=== PATIENT | male | born 1955 | race Caucasian/White ===

== ENCOUNTER 2020-09-23 07:31 | Inpatient (IN) | payer OTHER, BC, SELFPAY ==
[~2020-09-23] VITALS: Ht 175.3 cm; Wt 76.7 kg
[2020-09-23 07:35] VITALS: BP_SYST 88
--- NOTE | 2020-09-23 07:35 | NUR ---
Patient to ER bed 4 to gown for evaluation. Side rails up. Report given to Laly HELTON.
--- NOTE | 2020-09-23 07:36 | NUR ---
Patient presented to ER C/O SOB. PT BIB ACLS from [facility], per EMS staff report PT had desaturation to 86% on RA, cough & congestion. EMS report while on seen pt became hypotensive. per EMS PT was given Moderna vaccine .
--- NOTE | 2020-09-23 07:49 | NUR ---
ER Dr. Murphy at bedside examining patient.
--- NOTE | 2020-09-23 08:10 | NUR ---
# 22 gauge angiocath placed to Left hand . Use of asceptic technique. Opsite placed over site. Blood return noted. Blood for lab drawn from site. Flushed with 10 cc of normal saline. No evidence of infiltration noted. Patient tolerated well.
[2020-09-23 09:04] LABS: BASOPHILS % (AUTO) 0.2 % (0.0-2.0); HEMATOCRIT 44.6 % (36-54); HEMOGLOBIN 15.2 g/dL (14.0-18.0); LYMPHOCYTES % (AUTO) 8.5 % (20.5-51.5); MEAN CORPUSCULAR HEMOGLOBIN 33 pg (27-31); MEAN CORPUSCULAR HGB CONC 34 % (32-36); MEAN CORPUSCULAR VOLUME 95 fL (79.0-98.0); MONOCYTES # (AUTO) 0.5 K/uL (0.0-1.0); MONOCYTES % (AUTO) 4.3 % (1.7-9.3); NEUTROPHILS # (AUTO) 9.9 K/uL (1.8-7.7); PLATELET COUNT (AUTO) 96 K/uL (130-430); RED BLOOD CELL COUNT(AUTO) 4.69 MIL/uL (4.2-6.2); RED CELL DISTRIBUTION WIDTH 13.1 % (9.0-15.0); WHITE BLOOD COUNT (AUTO) 11.3 K/uL (4.8-10.8)
[2020-09-23 09:22] LABS: INR 1.1 (0.80-1.20); PROTHROMBIN TIME 10.8 SECS (9.5-12.5)
[2020-09-23 09:30] LABS: CALCIUM 8.5 mg/dL (8.4-11.0); CREATININE 2.92 mg/dL (0.55-1.30); POTASSIUM 3.3 mmol/L (3.5-5.1)
[2020-09-23] MEDS ORDERED: NS 500 ML IV ONE (09:30)
--- NOTE | 2020-09-23 09:40 | NUR ---
Sister, Michelle Adame of PT called for update. Michelle gave me a brief summary of why pt was brought to ER, I confirmed PT was BIB EMS for destaturation and hypotension and pt is currently stable with Oxygen support and labs still pending. Michelle informed me PT was given COVID vaccine 09/21/20 and asked for pt to have a COVID test. I confirmed a COVID test was ordered and sent to lab but no results at this time. I educated sister of PT if she had spent time with PT and feels she may have been exposed to quarantine at home. The Michelle asked if I could call her with lab results. I informed Michelle I may not have time to call her with an update, and reassured her the PT would be cared for and recieve good emergency medicine treatment. Michelle became upset and began yelling. "Patients go to the ER and get left there to ". I will do my best to get you an update. Michelle stated I will call when ever want to get an update and continued to yell, I asked Art, Charge to assist with the family and transferred the phone call.
[2020-09-23 09:44] LABS: ALBUMIN 2.7 g/dL (3.4-4.8); TOTAL BILIRUBIN 0.5 mg/dL (0.0-1.0)
[2020-09-23 10:30] LABS: CKMB RELATIVE INDEX 0.2 (0.0-2.9); CREATINE KINASE MB 0.9 ng/mL (0-3.6)
[2020-09-23 10:59] LABS: C-REACTIVE PROTEIN QUANT 59.1 mg/dL (0-0.5)
[2020-09-23] MEDS ORDERED: HEPARIN 25,000 UNITS/D5W 250ML 250 ML IV ONE (11:00)
[2020-09-23] MEDS ORDERED: DEXAMETHASONE SOD PHOSPHATE 10 MG/ML VIAL IVP ONE (11:00)
[2020-09-23] MEDS ORDERED: cefTRIAXone 1 GM in D5W 50 ML IV ONE (11:00)
[2020-09-23] MEDS ORDERED: AZITHROMYCIN 500 MG in NS 250 ML IV ONE (11:00)
[2020-09-23] MEDS ORDERED: HEPARIN SODIUM,PORCINE 5,000 UNITS/ML VIAL IVP ONE (11:00)
[2020-09-23 11:30] LABS: BILIRUBIN,URINE NEGATIVE (NEGATIVE); BLOOD, URINE 3+ (NEGATIVE); CLARITY/URINE CLOUDY (CLEAR); COLOR,URINE YELLOW (YELLOW); GLUCOSE,URINE NEGATIVE (NEGATIVE); KETONES,URINE 1+ (NEGATIVE); LEUKOCYTE ESTERASE ,URINE 2+ (NEGATIVE); NITRITE, URINE NEGATIVE (NEGATIVE); PH,URINE 5.5 (5.0-8.0); PROTEIN URINE 2+ (NEGATIVE); UROBILINOGEN,URINE 0.2 (0.2-1.0)
[2020-09-23] MEDS ORDERED: cefTRIAXone 1 GM VIAL ONE (11:44)
[2020-09-23 11:45] LABS: BACTERIA,URINE MODERATE /HPF (None Seen); MUCUS,URINE 1+ /LPF (None Seen); RBC,URINE 50-80 /HPF (0-3); WBC,URINE 50-80 /HPF (0-3)
--- NOTE | 2020-09-23 11:50 | NUR ---
PT awake resting in [facility].
--- NOTE | 2020-09-23 12:10 | NUR ---
Admission orders from Dr. Montano. Notified distribution operation supervisor need for Tele bed admission.
[2020-09-23] MEDS ORDERED: AZITHROMYCIN 100 MG/5 ML SUSPENSION ONE (12:39)
[2020-09-23] MEDS ORDERED: AZITHROMYCIN 500 MG/VIAL (ZITHROMAX) IV ONE ×2 (12:40→17:45)
--- NOTE | 2020-09-23 13:21 | NUR ---
Note claremary in EDM - 09/23/20 at [address] Chand for Tia (Daughter of PT). Dr Chand made aware Tia would like pt to take home medication Rozlytrek 200mg. "Dr. Chand stated pt may take home medication". I informed Tia Chand stated pt may take medication.
--- NOTE | 2020-09-23 13:21 | NUR ---
Juan godinez in EDM - 09/23/20 at 1328 by SDEDTD Rich aguilar Tia )Daughter of PT)
[2020-09-23] MEDS ORDERED: ACETAMINOPHEN 325 MG TABLET GT PRN (13:45)
[2020-09-23] MEDS ORDERED: ALBUTEROL SULFATE 0.083% 2.5 MG/3 ML VIAL.NEB INH PRN (13:45)
[2020-09-23] MEDS ORDERED: LORazepam 2 MG/ML VIAL IVP PRN (13:45)
[2020-09-23] MEDS ORDERED: ONDANSETRON HCL 4 MG/2 ML VIAL IVP PRN (13:45)
[2020-09-23] MEDS ORDERED: HYDROcodone/ACETAMIN 5-325 MG TAB (NORCO/ VICODIN) GT PRN (13:45)
[2020-09-23] MEDS ORDERED: NALOXONE HCL 0.4 MG/ML AMP (NARCAN) IVP PRN ×2 (13:45)
[2020-09-23] MEDS ORDERED: HYDROcodone/ACETAMIN 10-325 MG TAB GT PRN (13:45)
[2020-09-23] MEDS: IPRATROPIUM BROM 0.5 MG/2.5 ML VIAL.NEB (ATROVENT) INH SCH ×3 (15:00→23:00)
[2020-09-23] MEDS ORDERED: COLL100 PO (16:27)
[2020-09-23] MEDS ORDERED: NOR10 GT (16:27)
[2020-09-23] MEDS ORDERED: SIMV10TA2 GT (16:27)
[2020-09-23] MEDS ORDERED: CRAN450T9 GT (16:27)
[2020-09-23] MEDS ORDERED: ACET325T53 GT (16:27)
[2020-09-23] MEDS ORDERED: METO-442 GT (16:27)
[2020-09-23] MEDS ORDERED: OMEP1PAC5 PO (16:27)
[2020-09-23] MEDS ORDERED: LISI40TA4 GT (16:27)
[2020-09-23] MEDS ORDERED: CEL20 GT (16:27)
[2020-09-23] MEDS ORDERED: POLY15DR31 EACH EYE (16:27)
[2020-09-23] MEDS ORDERED: ASCO500T20 GT (16:27)
[2020-09-23] MEDS ORDERED: PHEN100O4 GT (16:27)
[2020-09-23] MEDS ORDERED: CAT.1 GT (16:27)
[2020-09-23] MEDS ORDERED: HYDR10SY11 GT (16:27)
[2020-09-23] MEDS ORDERED: SSNOVOLOG SUBCUT (16:27)
--- NOTE | 2020-09-23 17:10 | NUR ---
PT micheal mckinnon.
--- NOTE | 2020-09-23 17:15 | NUR ---
# 20 gauge angiocath placed to right AC. Use of asceptic technique. Opsite placed over site. Blood return noted. Blood for lab drawn from site. Flushed with 10 cc of normal saline. No evidence of infiltration noted. Patient tolerated well.
[2020-09-23] MEDS: D5/0.45 NS 1,000 ML IV SCH ×2 (17:52→22:11)
[2020-09-23] MEDS: AZITHROMYCIN 500 MG in NS 250 ML IV SCH (17:53)
[2020-09-23] MEDS: cefTRIAXone 1 GM IVPB PREMIX 50 ML IV SCH (17:56)
--- NOTE | 2020-09-23 18:32 | NUR ---
Made Dr. Montano aware of BP 78/48
[2020-09-23] MEDS ORDERED: NACL 0.9% 1,000 ML IV ONE ×2 (18:45→19:45)
--- NOTE | 2020-09-23 18:46 | NUR ---
D5.45NS to 150ml/hr per Dr. Montano
[2020-09-23] MEDS ORDERED: INSULIN REGULAR, HUMAN 10 UNITS/0.1 ML INJ ONE (19:08)
[2020-09-23] MEDS: INSULIN REGULAR, HUMAN 100 UNITS/ML, 10 ML VIAL (humuLIN R) SUBCUT PRN (19:10)
--- NOTE | 2020-09-23 19:23 | NUR ---
report to January RN
--- NOTE | 2020-09-23 19:40 | NUR ---
Call Dr. Montano regarding, BP 76/48 after given NSS Bolus- Order upgrate to ICU and started drip Levophed (see order).
[2020-09-23] MEDS ORDERED: NOREPINEPHRINE 4 MG/4 ML VIAL IV ONE (19:43)
--- NOTE | 2020-09-23 19:57 | NUR ---
BP 97/41 after started NSS Bolus-Hold Levophed.
--- NOTE | 2020-09-23 20:08 | NUR ---
BP 76/41- start Levophed drip 0.1 mcg/kg/hr- 28-87 ml/hr.
--- NOTE | 2020-09-23 20:38 | NUR ---
Ultrasound at bedside.
--- NOTE | 2020-09-23 21:40 | NUR ---
Juan godinez in ED - 09/24/20 at 0317 by [email or web address] Sister updated on patient status. all questions answered. will be updated with any change of condition.
--- NOTE | 2020-09-23 21:40 | NUR ---
Sister, NELSON STARKS, updated on patient status. All questions answered. INFORMED PATIENT HAS BEEN UPGRADED TO ICU. will be updated with any change of condition.
--- NOTE | 2020-09-23 22:00 | NUR ---
BP 88/56- Increase Levophed drip
--- NOTE | 2020-09-23 23:16 | NUR ---
Continue Levophed drip -0.19 mcg/kg/hr- BP 106/74
--- NOTE | 2020-09-23 23:35 | NUR ---
149/65- Decrease Levophed drip
--- NOTE | 2020-09-23 23:42 | NUR ---
SISTER, CHRISTI GARY, CALLED FOR UPDATE ON PATIENT STATUS. SISTER UPDATED. INFORMED PATIENT IS IN ED FOR ICU HOLD.
[2020-09-24] MEDS ORDERED: INSULIN REGULAR, HUMAN 10 UNITS/0.1 ML INJ ONE (00:01)
--- NOTE | 2020-09-24 00:08 | NUR ---
BS 226- Given Insulin R 4 unit as sliding scale order.
--- NOTE | 2020-09-24 00:16 | NUR ---
Continue Levophed drip - 0.13 mcg/kg/hr. BP 122/100
--- NOTE | 2020-09-24 00:44 | NUR ---
Patient had bowel movement, clean patient and change a new gown.
--- NOTE | 2020-09-24 00:52 | NUR ---
Move patient to hospital bed, patient is stable after move to a new bed.
--- NOTE | 2020-09-24 01:36 | NUR ---
Patient is sleeping, BP 116/72.
[2020-09-24] MEDS ORDERED: NOREPINEPHRINE 4 MG/4 ML VIAL IV ONE (01:41)
--- NOTE | 2020-09-24 01:57 | NUR ---
Decrease to Levophed 0.1 mcg/kg/hr. BP 108/48
[2020-09-24] MEDS: IPRATROPIUM BROM 0.5 MG/2.5 ML VIAL.NEB (ATROVENT) INH SCH ×2 (02:51→07:00)
--- NOTE | 2020-09-24 03:24 | NUR ---
Continue Levophed -0.1 mcg/kg/hr. BP 104/79. Patient sleeping, no respiratory distress,
--- NOTE | 2020-09-24 04:36 | NUR ---
Patient pulled IV left hand, # 22 gauge angiocath placed to left wrist by DANIE Shields. Use of asceptic technique. Opsite placed over site. Blood return noted. Blood for lab drawn from site. Flushed with 10 cc of normal saline. No evidence of infiltration noted. Patient tolerated well.
--- NOTE | 2020-09-24 05:02 | NUR ---
Patient had bowel movement and urinated, changed new bed sheet and cleaned patient.
[2020-09-24] MEDS: D5/0.45 NS 1,000 ML IV SCH ×3 (05:08→18:05)
--- NOTE | 2020-09-24 05:18 | NUR ---
Continue drip Levophed 0.1 mcg/kg/hr, BP 112/61.
--- NOTE | 2020-09-24 05:47 | NUR ---
Patient had bowel movement, cleaned, changed bed sheet and gown.
--- NOTE | 2020-09-24 06:09 | NUR ---
BS 120- No insulin
[2020-09-24 06:10] VITALS: BP_SYST 110
--- NOTE | 2020-09-24 07:06 | NUR ---
Report given to DANIE Ruffin to continue care.
--- NOTE | 2020-09-24 09:00 | NUR ---
No Labs resulted at this time
--- NOTE | 2020-09-24 09:38 | NUR ---
Levophed IV infusion titrated
[2020-09-24] MEDS ORDERED: NACL 0.9% 1,000 ML IV ONE (09:59)
[2020-09-24] MEDS ORDERED: HEPARIN SODIUM,PORCINE 5,000 UNITS/ML VIAL SUBCUT ONE (10:00)
--- NOTE | 2020-09-24 10:10 | NUR ---
PT repositioned in [facility] m[facility]inn[facility].
--- NOTE | 2020-09-24 10:15 | NUR ---
Lab results pending
[2020-09-24] MEDS: NOREPINEPHRINE BITARTRATE 4 MG in NS 246 ML IV PRN (10:43)
[2020-09-24] MEDS: POTASSIUM CHLORIDE 10 MEQ in NACL 0.9% 1,000 ML IV SCH ×2 (10:47→19:03)
[2020-09-24] MEDS: ALBUTEROL MDI INHALATION 8 GM INH INH SCH ×4 (11:00→23:00)
[2020-09-24] MEDS: NACL 0.9% 1,000 ML IV SCH ×2 (11:09→13:56)
--- NOTE | 2020-09-24 11:20 | NUR ---
Notified Ro in Lab, AM labs not populating in [facility]. Ro stated am labs have not been drawn. I made Ro aware Labs need to be drawn STAT
--- NOTE | 2020-09-24 11:25 | NUR ---
Dr. Kaminski called ER for consult.
--- NOTE | 2020-09-24 11:30 | NUR ---
I attempted to draw labs, unsuccessful.
--- NOTE | 2020-09-24 11:50 | NUR ---
Ro at for lab draw.
[2020-09-24] MEDS: DEXAMETHASONE SOD PHOSPHATE 10 MG/ML VIAL IVP SCH (12:15)
[2020-09-24 12:21] LABS: BASOPHILS % (AUTO) 0.3 % (0.0-2.0); EOSINOPHILS % (AUTO) 0.1 % (0.0-4.0); HEMATOCRIT 36.8 % (36-54); HEMOGLOBIN 12.6 g/dL (14.0-18.0); LYMPHOCYTES # (AUTO) 0.6 K/uL (1.0-5.5); LYMPHOCYTES % (AUTO) 5.7 % (20.5-51.5); MEAN CORPUSCULAR HEMOGLOBIN 33 pg (27-31); MEAN CORPUSCULAR HGB CONC 34 % (32-36); MEAN CORPUSCULAR VOLUME 96 fL (79.0-98.0); MONOCYTES # (AUTO) 0.3 K/uL (0.0-1.0); MONOCYTES % (AUTO) 2.8 % (1.7-9.3); NEUTROPHILS # (AUTO) 9.3 K/uL (1.8-7.7); NEUTROPHILS % (AUTO) 91.1 % (40.0-70.0); PLATELET COUNT (AUTO) 84 K/uL (130-430); RED BLOOD CELL COUNT(AUTO) 3.83 MIL/uL (4.2-6.2); RED CELL DISTRIBUTION WIDTH 13.4 % (9.0-15.0); WHITE BLOOD COUNT (AUTO) 10.2 K/uL (4.8-10.8)
[2020-09-24 12:35] LABS: CREATININE 2.32 mg/dL (0.55-1.30); PHOSPHORUS 1.5 mg/dL (2.7-4.5); POTASSIUM 3.2 mmol/L (3.5-5.1)
[2020-09-24] MEDS ORDERED: HEPARIN SODIUM,PORCINE 5,000 UNITS/ML VIAL ONE (13:50)
[2020-09-24] MEDS ORDERED: K PHOS 30 MM in NS 250 ML IV ONE (15:00)
--- NOTE | 2020-09-24 15:40 | NUR ---
PT repositioned, complete linen change.
[2020-09-24] MEDS: HEPARIN SODIUM,PORCINE 5,000 UNITS/ML VIAL SUBCUT SCH (17:08)
[2020-09-24] MEDS: cefTRIAXone 1 GM IVPB PREMIX 50 ML IV SCH (17:11)
--- NOTE | 2020-09-24 17:35 | NUR ---
DR VELASCO AT
--- NOTE | 2020-09-24 17:36 | NUR ---
CLARIFIED IVF ORDERS WITH DR. VELASCO IN ER NURSES STATION
--- NOTE | 2020-09-24 17:40 | NUR ---
supervisor painting department notified of IVF medications need d/t pharmacy closed.
[2020-09-24] MEDS ORDERED: NA PHOS 30 MM in NS 250 ML IV ONE (17:45)
[2020-09-24] MEDS: AZITHROMYCIN 500 MG in NS 250 ML IV SCH (18:04)
[2020-09-24] MEDS ORDERED: SODIUM PHOSPHATE IV ONE (18:05)
[2020-09-24] MEDS ORDERED: NACL 0.9% IV ONE (18:05)
--- NOTE | 2020-09-24 18:05 | NUR ---
Complete linen change & PT repositioned.
--- NOTE | 2020-09-24 19:14 | NUR ---
Report to Iza HELTON
--- NOTE | 2020-09-24 19:15 | NUR ---
ENDORSED BG 300 TAKEN AT 1844 BY ADAM HELTON. WILL GIVE 6 UNITS OF REGULAR INSULIN.
--- NOTE | 2020-09-24 19:20 | NUR ---
Introduced myself to patient, pt nonverbal. Pt has R arm contraction. Skin intact.
--- NOTE | 2020-09-24 19:30 | NUR ---
L IV infiltrated, IV line d/c
--- NOTE | 2020-09-24 19:40 | NUR ---
Pt soiled self, cleaned and gowned by Sonja ALFREDO.
[2020-09-24] MEDS: INSULIN REGULAR, HUMAN 100 UNITS/ML, 10 ML VIAL (humuLIN R) SUBCUT PRN (19:54)
--- NOTE | 2020-09-24 20:40 | NUR ---
# 16 FR Camacho catheter with use of sterile technique. Immediate return of 300 cc CLEAR YELLOW urine noted. Bedside drainage bag placed below level of bladder. Urine sample collected and sent to lab. Pt tolerated procedure WELL.
--- NOTE | 2020-09-24 21:34 | NUR ---
SISTER, CHRISTI, CALLED REQUESTING DR. VELASCO TO PUT ORDER FOR CONVALESCENT PLASMA. INFORMED DANIE PHILLIPS AND WILL NOTIFY DR. VELASCO FOR ORDERS.
--- NOTE | 2020-09-25 00:21 | NUR ---
ACCUCHECK 146 - PER INSULIN PROTOCOL NO INSULIN COVERAGE
[2020-09-25] MEDS ORDERED: HEPARIN SODIUM,PORCINE 5,000 UNITS/ML VIAL ONE (00:58)
--- NOTE | 2020-09-25 01:10 | NUR ---
RT called to bedside, Pt O2 SAT at 83%. O2 maxed currently at 88%
--- NOTE | 2020-09-25 01:24 | NUR ---
MRSA swab sent to LAB
[2020-09-25] MEDS: HEPARIN SODIUM,PORCINE 5,000 UNITS/ML VIAL SUBCUT SCH ×4 (01:27→22:51)
[2020-09-25] MEDS: D5/0.45 NS 1,000 ML IV SCH ×3 (01:27→14:05)
[2020-09-25] MEDS: ALBUTEROL MDI INHALATION 8 GM INH INH SCH ×6 (03:00→23:59)
--- NOTE | 2020-09-25 04:40 | NUR ---
lab at bedside drawing morning labs.
[2020-09-25] MEDS: POTASSIUM CHLORIDE 10 MEQ in NACL 0.9% 1,000 ML IV SCH ×2 (05:13→06:26)
[2020-09-25 05:26] LABS: BASOPHILS % (AUTO) 0.2 % (0.0-2.0); HEMATOCRIT 32.3 % (36-54); HEMOGLOBIN 11.4 g/dL (14.0-18.0); LYMPHOCYTES # (AUTO) 0.4 K/uL (1.0-5.5); LYMPHOCYTES % (AUTO) 4.6 % (20.5-51.5); MEAN CORPUSCULAR HEMOGLOBIN 33 pg (27-31); MEAN CORPUSCULAR HGB CONC 35 % (32-36); MEAN CORPUSCULAR VOLUME 95 fL (79.0-98.0); MONOCYTES # (AUTO) 0.4 K/uL (0.0-1.0); MONOCYTES % (AUTO) 4.7 % (1.7-9.3); NEUTROPHILS # (AUTO) 7.5 K/uL (1.8-7.7); NEUTROPHILS % (AUTO) 90.5 % (40.0-70.0); PLATELET COUNT (AUTO) 68 K/uL (130-430); RED BLOOD CELL COUNT(AUTO) 3.42 MIL/uL (4.2-6.2); RED CELL DISTRIBUTION WIDTH 13.1 % (9.0-15.0); WHITE BLOOD COUNT (AUTO) 8.3 K/uL (4.8-10.8)
[2020-09-25 05:48] LABS: CREATININE 1.67 mg/dL (0.55-1.30)
[2020-09-25 05:50] LABS: POTASSIUM 2.7 mmol/L (3.5-5.1)
--- NOTE | 2020-09-25 05:54 | NUR ---
critcal lab reporting - potassium 2.7, troponin 0.411. Dr. Montano paged.
--- NOTE | 2020-09-25 05:55 | NUR ---
Critical Value of Calcium 6
--- NOTE | 2020-09-25 06:00 | NUR ---
Dr Montano paged for critical values. New orders placed. Adolph corbett aware of order for patient. Mera corbett will bring K20 MEQ inn NS 1L
[2020-09-25 06:06] LABS: C-REACTIVE PROTEIN QUANT 45.1 mg/dL (0-0.5)
[2020-09-25] MEDS ORDERED: KCL 20 mEq in NS 1000 mL 1,000 ML IV ONE (06:11)
[2020-09-25] MEDS ORDERED: NOREPINEPHRINE 4 MG/4 ML VIAL IV ONE (06:20)
[2020-09-25 06:28] LABS: ERYTHROCYTE SEDIMENTATION RATE 67 MM/HR (0-15)
--- NOTE | 2020-09-25 06:41 | NUR ---
BG 251. Insulin humalin R protocol 6 units to be given
[2020-09-25] MEDS: KCL 20 mEq in NS 1000 mL 1,000 ML IV SCH ×2 (06:55→17:20)
[2020-09-25] MEDS: INSULIN REGULAR, HUMAN 100 UNITS/ML, 10 ML VIAL (humuLIN R) SUBCUT PRN ×3 (06:59→18:52)
--- NOTE | 2020-09-25 07:47 | NUR ---
REPORT GIVEN TO FEDERICO HELTON FOR CONTINUATION OF CARE
--- NOTE | 2020-09-25 08:17 | NUR ---
pt in bed resting, continues on Non rebreather mask. IV Levophed on hold per Provider order.
[2020-09-25] MEDS: DEXAMETHASONE SOD PHOSPHATE 10 MG/ML VIAL IVP SCH (09:00)
--- NOTE | 2020-09-25 09:03 | NUR ---
Pt in bed, resting well. Cont IVF and medications as ordered. Side rails up.
--- NOTE | 2020-09-25 09:50 | NUR ---
pt is resting, responds to tactile stimuli. IV Levophed stopped. Pt Vital signs have remained stable.
--- NOTE | 2020-09-25 11:29 | NUR ---
pt moving in bed, repositioned. Side rails up. Non verbal. Movement with tactile stimuli. IVF continued. Respiratory therapist at bedside.
--- NOTE | 2020-09-25 12:48 | NUR ---
Pt awake and responds to tactile stimuli. Camacho catheter draining. IVF continued.
--- NOTE | 2020-09-25 13:09 | NUR ---
Dietary called and asked that a Swollowing evaluation be ordered for pt. Order completed and Speech therapist notified.
--- NOTE | 2020-09-25 13:10 | NUR ---
ARLEN HALEY. LEFT A VOICE MESSAGE FOR CARLOS. DIALED [phone]
--- NOTE | 2020-09-25 13:12 | NUR ---
Dietitian Recommendations * Recommend ST swallow eval * Recommend D/C cardiac diet * Recommend continuing NPO order until ST swallow eval is completed LP, RD Please refer to Nutrition Assessment for details. Addendum: 09/25/20 at [address] Amended: Links added.
--- NOTE | 2020-09-25 13:15 | NUR ---
Family called and are asking for Plasma to be given to the patient. Requested that I call the Primary Provider Dr. Montano and request this medication.
--- NOTE | 2020-09-25 14:44 | NUR ---
Pt turned and repositioned. Pt johnson catheter in place. IVF infusing.
--- NOTE | 2020-09-25 15:36 | NUR ---
family called 3x to request Convalescent plasma. Dr. Baumann has been called.
[2020-09-25] MEDS: cefTRIAXone 1 GM IVPB PREMIX 50 ML IV SCH (17:20)
[2020-09-25] MEDS: AZITHROMYCIN 500 MG in NS 250 ML IV SCH (17:21)
--- NOTE | 2020-09-25 17:43 | NUR ---
Pt responding to tactile stimuli. Pt family notified that Ordered the Conv. plasma that they requested. After I explained that it has possible side effects, the family decided to hold off and asked not to give their brother the Plasma.
[2020-09-25] MEDS ORDERED: INSULIN REGULAR, HUMAN 10 UNITS/0.1 ML INJ ONE (18:41)
--- NOTE | 2020-09-25 19:01 | NUR ---
Insulin 2 units given per sliding scale. Pt awakens to tactile stimuli.
--- NOTE | 2020-09-25 19:30 | NUR ---
Report received by Andrade HELTON for continuation of care.
--- NOTE | 2020-09-25 22:30 | NUR ---
Pt positioned to his R side. Pillow placed on the right side.
--- NOTE | 2020-09-25 22:40 | NUR ---
Urine output from johnson cath 2100cc.
--- NOTE | 2020-09-26 00:45 | NUR ---
Pt is tachycardic and HBP. Pt given ativan. Will continue to monitor.
--- NOTE | 2020-09-26 01:20 | NUR ---
Pt reassed. Pt feels warm, given tylenol PRN order for fever, Oral temp of 101.5
--- NOTE | 2020-09-26 01:35 | NUR ---
Pt repositioned to L side.
[2020-09-26] MEDS: KCL 20 mEq in NS 1000 mL 1,000 ML IV SCH ×2 (03:05→18:00)
--- NOTE | 2020-09-26 03:10 | NUR ---
Pt is hypotensive, pt placed on standby levophed.
--- NOTE | 2020-09-26 04:21 | NUR ---
Lab reports plasma will take 5-7 days. Pt's family stated to hold plasma.
[2020-09-26] MEDS: ALBUTEROL MDI INHALATION 8 GM INH INH SCH ×6 (04:30→23:10)
--- NOTE | 2020-09-26 04:45 | NUR ---
Pt repositioned to R side.
--- NOTE | 2020-09-26 05:20 | NUR ---
Xray at bedside.
[2020-09-26] MEDS: HEPARIN SODIUM,PORCINE 5,000 UNITS/ML VIAL SUBCUT SCH (06:47)
[2020-09-26] MEDS ORDERED: HEPARIN SODIUM,PORCINE 5,000 UNITS/ML VIAL ONE (06:50)
[2020-09-26] MEDS: INSULIN REGULAR, HUMAN 100 UNITS/ML, 10 ML VIAL (humuLIN R) SUBCUT PRN (07:04)
--- NOTE | 2020-09-26 07:18 | NUR ---
REPORT GIVEN TO TONY HELTON FOR CONTINUATION OF CARE
--- NOTE | 2020-09-26 07:20 | NUR ---
Assumed care of patient, report received from DANIE Couch. Pt currently resting in bed, no distress noted.
--- NOTE | 2020-09-26 07:45 | NUR ---
Called pharmacy to request medications.
[2020-09-26 08:14] LABS: BASOPHILS % (AUTO) 0.3 % (0.0-2.0); HEMATOCRIT 39.2 % (36-54); HEMOGLOBIN 13.5 g/dL (14.0-18.0); LYMPHOCYTES # (AUTO) 0.7 K/uL (1.0-5.5); LYMPHOCYTES % (AUTO) 7.6 % (20.5-51.5); MEAN CORPUSCULAR HEMOGLOBIN 33 pg (27-31); MEAN CORPUSCULAR HGB CONC 34 % (32-36); MEAN CORPUSCULAR VOLUME 95 fL (79.0-98.0); MONOCYTES # (AUTO) 0.3 K/uL (0.0-1.0); MONOCYTES % (AUTO) 3.3 % (1.7-9.3); NEUTROPHILS # (AUTO) 8.3 K/uL (1.8-7.7); NEUTROPHILS % (AUTO) 88.8 % (40.0-70.0); PLATELET COUNT (AUTO) 91 K/uL (130-430); RED BLOOD CELL COUNT(AUTO) 4.11 MIL/uL (4.2-6.2); RED CELL DISTRIBUTION WIDTH 13.3 % (9.0-15.0); WHITE BLOOD COUNT (AUTO) 9.4 K/uL (4.8-10.8)
--- NOTE | 2020-09-26 08:30 | NUR ---
Pt repositioned to right side, pillow placed behind coccyx, HOB elevated above 30 degrees, pt tolerated well.
--- NOTE | 2020-09-26 08:45 | NUR ---
BP at 0830 156/91, repeat BP at 148/90, Levophed d/c'd as per protocol.
[2020-09-26 08:53] LABS: ALBUMIN 1.9 g/dL (3.4-4.8); CREATININE 1.94 mg/dL (0.55-1.30); POTASSIUM 3.5 mmol/L (3.5-5.1); TOTAL BILIRUBIN 0.5 mg/dL (0.0-1.0)
[2020-09-26 09:03] LABS: CALCIUM 6.6 mg/dL (8.4-11.0)
--- NOTE | 2020-09-26 09:04 | NUR ---
RECEIVED ABNORMAL LABS, TONY HELTON AWARE, WILL PLACE CALL TO PMD.
--- NOTE | 2020-09-26 09:05 | NUR ---
Dr. Yobani Montano paged regarding abnormal labs. Instructed to call Pulmonary regarding O2 sat and cardiology regarding elevated troponin.
[2020-09-26] MEDS: DEXAMETHASONE SOD PHOSPHATE 10 MG/ML VIAL IVP SCH (09:11)
--- NOTE | 2020-09-26 09:31 | NUR ---
DR. Winsome VELASCO & DR. Serafin VELASCO WERE PAGED
--- NOTE | 2020-09-26 09:34 | NUR ---
DR. GALINDO WAS PAGED FOR NURSE TO DOCTOR.
--- NOTE | 2020-09-26 09:39 | NUR ---
TT Dr. Doherty who is covering for Mannie, pulmonology, reported dereasing O2 sat, 80-85% on 15L NRB. Per Dr. Doherty, no change in orders at this time.
--- NOTE | 2020-09-26 10:30 | NUR ---
Pt repositioned to left side, pillow placed behind coccyx, HOB elevated above 30 degrees, pt tolerated well.
--- NOTE | 2020-09-26 11:03 | NUR ---
Paged Dr. Leia Montano again, still no response from original page regarding elevated Troponin.
--- NOTE | 2020-09-26 11:17 | NUR ---
Spoke with Dr. Leia Montano, report of elevated troponin given and most recent EKG results. Orders given to repeat EKG at noon. Orders placed.
--- NOTE | 2020-09-26 12:45 | NUR ---
Pt repositioned to right side, pillow placed behind coccyx, HOB elevated above 30 degrees, pt tolerated well.
--- NOTE | 2020-09-26 12:47 | NUR ---
Report received from lab regarding patient MRSA +, Dr. Oscar dior.
[2020-09-26 13:14] LABS: C-REACTIVE PROTEIN QUANT 59.2 mg/dL (0-0.5)
[2020-09-26] MEDS ORDERED: CALCIUM GLUCONATE 1 GM in NS 100 ML IV ONE (13:15)
--- NOTE | 2020-09-26 14:27 | NUR ---
S.T. SWALLOW EVAL SWALLOW EVAL PERFORMED. PT PRESENTS W/ SEV PRE-ORAL, ORAL, AND PHARYNGEAL DYSPHAGIA CHARACTERIZED BY POOR INTEREST FOR P.O., POOR BOLUS POSTER, ABSENT BOLUS MANIPULATION, AND ABSENT SWALLOW. PT IS AT HIGH RISK FOR ASPIRATION, MALNUTRITION, AND DEHYDRATION. REC: NPO - ALTERNATIVE METHOD FOR FEEDING. NURSE TONY NOTIFIED.
--- NOTE | 2020-09-26 14:30 | NUR ---
Pt repositioned to left side, pillow placed behind coccyx, HOB elevated above 30 degrees, pt tolerated well.
--- NOTE | 2020-09-26 15:16 | NUR ---
IV infiltrated, unable to obtain IV access, TO from Dr. Yobani Montano for PICC placement. Notified Mera corrugator supervisor. Copy of order faxed.
--- NOTE | 2020-09-26 15:20 | NUR ---
Left message for sister Chantale Rodriguez regarding telephone consent for central line placement.
--- NOTE | 2020-09-26 15:26 | NUR ---
Copy of Order faxed to general warehouse worker. Stated PICC nurse will not be able to place PICC until tomorrow morning. Consent signed by 2 nurses and placed on chart.
--- NOTE | 2020-09-26 15:37 | NUR ---
DR. IRVIN WAS PAGED FOR NURSE.
--- NOTE | 2020-09-26 15:43 | NUR ---
Dr Doherty made aware patient has no PIV, unable to obtain PIV. Patient will need central line. DR. Doherty states she will come to place line today.
--- NOTE | 2020-09-26 16:40 | NUR ---
Pt repositioned to right side, pillow placed behind coccyx, HOB elevated above 30 degrees, pt tolerated well.
[2020-09-26 16:42] LABS: INR 1.1 (0.80-1.20); PROTHROMBIN TIME 11.6 SECS (9.5-12.5)
--- NOTE | 2020-09-26 16:55 | NUR ---
Consent for Central line insertion obtained from pt's sister Chantale Rodriguez. DANIE Rangel for second verbal confirmation.
--- NOTE | 2020-09-26 17:45 | NUR ---
Patient not known to be of DNR status. Patient medicated with 10mg of Etomidate and 20 mg of Succinylcholine for sedation prior to placement of ET tube. Respiratory therapy at bedside prior to placement. Size 7.5 ET tube placed by Dr. Doherty. Cuff inflated with 10 cc air. Auscultation of breath sounds over bilateral chest wall. ET tube secured by RT. O2 sats 95% pulse ox. PCXR ordered to check tube placement.
[2020-09-26] MEDS ORDERED: MORPHINE I.V. DRIP 100 ML IV PRN (18:00)
--- NOTE | 2020-09-26 18:00 | NUR ---
Attempted 3x [address] place NG tube, unsuccessful. Will endorse to pan washer hand
[2020-09-26] MEDS ORDERED: MIDAZOLAM HCL IN 0.9 % NACL/PF 50 ML IV ONE (18:09)
[2020-09-26] MEDS: MIDAZOLAM HCL IN 0.9 % NACL/PF 50 ML IV PRN (18:10)
--- NOTE | 2020-09-26 18:46 | NUR ---
Radiology at bedside for CXR
--- NOTE | 2020-09-26 19:09 | NUR ---
Daughter Chantale notified about pt's intubation.
--- NOTE | 2020-09-26 19:17 | NUR ---
Care of patient endorsed to DANIE Whitney. Pt currently resting in bed, no distress noted.
--- NOTE | 2020-09-26 19:58 | NUR ---
RT bedside for stat ABG post intubation on Fio2 100%
--- NOTE | 2020-09-26 21:00 | NUR ---
Remains intubated on same settings, continuing IV gtts has not been needing titration
[2020-09-26 21:12] VITALS: BP_SYST 93
[2020-09-26 21:13] VITALS: BP_SYST 91
--- NOTE | 2020-09-26 22:08 | NUR ---
OG Tube placement confirmation Portable X Ray done, well tolerated
[2020-09-26 23:14] VITALS: BP_SYST 88
[2020-09-27] VITALS (8 sets, daily range): BP systolic 79–108
[2020-09-27 00:13] LABS: ERYTHROCYTE SEDIMENTATION RATE 114 MM/HR (0-15)
--- NOTE | 2020-09-27 00:45 | NUR ---
Starting Levophed IV gtt per ICU order and protocol, starting at 2 mcg
--- NOTE | 2020-09-27 01:00 | NUR ---
Levophed gtt effective AEB SBP at 102 now
--- NOTE | 2020-09-27 02:16 | NUR ---
Keeping Levophed IV gtt at same 2 mcg rate, SBP holding above 90
--- NOTE | 2020-09-27 03:00 | NUR ---
Titrated Levophed gtt to 4 mcg, SBP from 80 to effective back above 90
[2020-09-27] MEDS: ALBUTEROL MDI INHALATION 8 GM INH INH SCH ×6 (04:01→23:51)
--- NOTE | 2020-09-27 04:08 | NUR ---
Continue on ICU IV gtts protocol, Vent settings remain unchanged
--- NOTE | 2020-09-27 07:45 | NUR ---
Pt Sedated in hospital bed & intubated. Latasha RT at bs. Patient repositioned.
[2020-09-27 08:14] LABS: HEMATOCRIT 34.1 % (36-54); HEMOGLOBIN 11.8 g/dL (14.0-18.0); MEAN CORPUSCULAR HEMOGLOBIN 33 pg (27-31); MEAN CORPUSCULAR HGB CONC 35 % (32-36); MEAN CORPUSCULAR VOLUME 95 fL (79.0-98.0); PLATELET COUNT (AUTO) 101 K/uL (130-430); RED BLOOD CELL COUNT(AUTO) 3.58 MIL/uL (4.2-6.2); RED CELL DISTRIBUTION WIDTH 13.5 % (9.0-15.0)
[2020-09-27 08:31] LABS: CREATININE 2.06 mg/dL (0.55-1.30); POTASSIUM 3.8 mmol/L (3.5-5.1)
[2020-09-27 08:40] LABS: CALCIUM 6.3 mg/dL (8.4-11.0)
--- NOTE | 2020-09-27 08:45 | NUR ---
Dr. Doherty at BS.
--- NOTE | 2020-09-27 08:55 | NUR ---
Dr. Padilla made aware of Critical values : Ca 6.3 & Trop1.821
[2020-09-27] MEDS ORDERED: CALCIUM CHLORIDE 1 GM in NS 100 ML IV ONE (09:00)
[2020-09-27] MEDS ORDERED: CALCIUM CHLORIDE 1 GM/10 ML DISP.SYRIN (14 mEq Ca++/SYR) ONE (09:15)
[2020-09-27] MEDS ORDERED: CALCIUM CHLORIDE 1 GM/10 ML DISP.SYRIN (14 mEq Ca++/SYR) IVP ONE ×2 (09:30→09:45)
--- NOTE | 2020-09-27 09:35 | NUR ---
Dr. Winsome Montano made aware of Trop. 1.821 & Ca 6.3
--- NOTE | 2020-09-27 09:40 | NUR ---
Latasha RT at
--- NOTE | 2020-09-27 09:45 | NUR ---
Dr. Serafin Montano made aware of Trop. 1.088
--- NOTE | 2020-09-27 10:05 | NUR ---
PT sedated, given cares & repositioned.
[2020-09-27 10:55] LABS: C-REACTIVE PROTEIN QUANT 49.6 mg/dL (0-0.5)
[2020-09-27] MEDS ORDERED: HEPARIN SODIUM,PORCINE 5,000 UNITS/ML VIAL IVP ONE (11:45)
[2020-09-27] MEDS ORDERED: HEPARIN 25,000 UNITS/D5W 250ML 250 ML IV PRN (11:45)
[2020-09-27] MEDS ORDERED: DEXAMETHASONE SOD PHOSPHATE 10 MG/ML VIAL ONE (11:45)
[2020-09-27] MEDS ORDERED: HEPARIN SODIUM,PORCINE 2000 UNITS/0.4 ML BOLUS IVP PRN (11:45)
[2020-09-27] MEDS ORDERED: HEPARIN SODIUM,PORCINE 3000 UNITS/0.6 ML BOLUS IVP PRN (11:45)
[2020-09-27] MEDS: KCL 20 mEq in NS 1000 mL 1,000 ML IV SCH (12:04)
[2020-09-27] MEDS: DEXAMETHASONE SOD PHOSPHATE 10 MG/ML VIAL IVP SCH (12:05)
[2020-09-27] MEDS ORDERED: VANCOMYCIN HCL 1 GM/NS PREMIX 250 ML IV ONE (12:15)
--- NOTE | 2020-09-27 12:33 | NUR ---
Nutrition F/U RD reviewed pt's current EMR record including diet hx, MD notes, RN notes, pertinent labs/meds/procedures, care trends, and care activity Admitting Diagnosis Respiratory failure/COVID pneumonia/elevated troponin Reviewed Pertinent Medical/Surgical Hx Medical Record Other Medical History Comment: PMH: CVA, DM, GERD, HTN, seizure disorder, dysphagia per physician notes Pt also found w/ sepsis, SCARLET on CKD per physician notes SARS-CoV-2 Ag (Rapid) Positive 09/23 Subjective Information Per EMR, pt intubated, sedated, on vent, w/ OGT placed on 09/26. On Versed drips and IV D5NS d/hilary per NOV. Remains in ER and RD visit deferred at this time d/t isolation precautions. Noted pt now NPO x 4 days and is at risk of being malnourished. Pt may benefit from initiation of nutrition support. Recommend Vital High Protein at 50 ml/hr (goal rate) to provide protein repletion while avoid overfeeding pt on vent. Current Diet Order/Nutrition Support NPO x4 days Pertinent Medications decadron, SSI, Versed, Norepinephrine Pertinent Labs K 3.8 WNL (improved), BG 172 H (trending down), POC BG 165 H, BUN 32 H, CRE 2.06 H, CRP 49.6 H Patient Weight 76.657 kg Skin Integrity Comment: N/A per EMR Current % PO NPO NEW Estimated Energy Expenditure (kcals/day) 4526-3205 kcal/day (15-20 kcal/kg CBW for critical illness, on vent, COVID, BMI < 30) Estimated Protein Required (g/day) 100-154 gm/day (1.3-2 gm/kg CBW for critical illness, on vent, COVID, BMI < 30) Estimated Fluid Required (l/day) 1.16-1.54 L/day (1 ml/kcal/day for maintenance) Problem/Etiology/Signs/Symptoms Perceived chewing/swallowing difficulty related to unknown etiology as evidenced by nutrition consult for dysphagia and need for NPO status per RN report. *not applicable Inadequate protein energy intake r/t respiratory failure, intubation, NPO AEB pt intubated, need for NPO status. Expected Outcomes/Goals - Monitor provision of nutrition support w/ goal of pt meeting at least 50% of estimated nutritional needs, labs trending WNL, normal GI function, and skin integrity/wt maintenance Dietitian Recommendations * If/when medically feasible, recommend TF Vital High Protein at 50 ml/hr (goal rate). FWF per MD via OGT Provides: 1200 kcal, 105 g protein, 1003 ml free H2O. Meets: 104% of lower end estimated kcal needs and 105% of lower end of estimated protein needs. Follow Up High Risk: F/U in 2-3days
--- NOTE | 2020-09-27 12:59 | NUR ---
Dietitian Recommendations * If/when medically feasible, recommend TF Vital High Protein at 50 ml/hr (goal rate). FWF per MD via OGT Provides: 1200 kcal, 105 g protein, 1003 ml free H2O. Meets: 104% of lower end estimated kcal needs and 105% of lower end of estimated protein needs. Please see Nutrition F/U for details. EP,RD
--- NOTE | 2020-09-27 13:40 | NUR ---
Maxime RT at BS, PT suctioned, repositned and EKG completed
[2020-09-27 13:45] LABS: ATYPICAL LYMPHOCYTES % 1 % (0-0); BAND % (MANUAL) 35 % (0-6); BASOPHILS % (MANUAL) 0 % (0-2); EOSINOPHILS % (MANUAL) 0 % (0-7); LYMPHOCYTES % (MANUAL) 3 % (20-46); MONOCYTES % (MANUAL) 3 % (0-11)
[2020-09-27 13:46] LABS: METAMYELOCYTES % 1 % (0-0)
[2020-09-27 14:00] LABS: ERYTHROCYTE SEDIMENTATION RATE 90 MM/HR (0-15)
[2020-09-27] MEDS ORDERED: MIDAZOLAM HCL IN 0.9 % NACL/PF 50 ML IV ONE (14:53)
[2020-09-27] MEDS: NOREPINEPHRINE BITARTRATE 4 MG in NS 246 ML IV PRN ×2 (15:01→18:00)
[2020-09-27] MEDS: MIDAZOLAM HCL IN 0.9 % NACL/PF 50 ML IV PRN (15:06)
[2020-09-27] MEDS: cefTRIAXone 1 GM IVPB PREMIX 50 ML IV SCH ×2 (16:00→16:27)
--- NOTE | 2020-09-27 16:35 | NUR ---
Patient cares completed, PT on continuous sedation.
[2020-09-27] MEDS: AZITHROMYCIN 500 MG in NS 250 ML IV SCH ×2 (16:58→17:00)
[2020-09-27] MEDS: 0.45% NACL 1,000 ML IV SCH (17:22)
--- NOTE | 2020-09-27 18:00 | NUR ---
TITRATED LEVOPHED BP 74/46
[2020-09-27] MEDS ORDERED: HEPARIN 25,000 UNITS/D5W 250ML 250 ML IV ONE (19:29)
--- NOTE | 2020-09-27 19:45 | NUR ---
RT bedside for suctioning and pt eval update
--- NOTE | 2020-09-27 19:59 | NUR ---
Lab bedside fot ptt lab draw to confirm value before starting heparin gtt as ordered
[2020-09-27] MEDS: INSULIN REGULAR, HUMAN 100 UNITS/ML, 10 ML VIAL (humuLIN R) SUBCUT PRN (20:30)
[2020-09-27 21:14] LABS: INR 1.2 (0.80-1.20)
--- NOTE | 2020-09-27 21:15 | NUR ---
VSS continuing on ICU IV drips protocol, well tolerated remains on same vent settings
--- NOTE | 2020-09-27 22:30 | NUR ---
Heparin IV was held, pt ptt already within therapeutic range at 56.1, seismograph computer aware
--- NOTE | 2020-09-27 23:23 | NUR ---
RT bedside providing eval and tx plus suctioning oral care
--- NOTE | 2020-09-28 00:08 | NUR ---
VSS on Levophed, Morphine, Versed IV drips, all effective and well tolerated
--- NOTE | 2020-09-28 01:12 | NUR ---
VSS no s/s of acute distress, Levophed, MS, Versed drips remain same rate, well tolerated
--- NOTE | 2020-09-28 02:45 | NUR ---
1 x Large BM noted, brown semi well formed, provided perineal care and linen change, well tolerated
--- NOTE | 2020-09-28 03:50 | NUR ---
IV drips remains same rate, VSS no s/s of acute distress Resting on hospital bed rails up
--- NOTE | 2020-09-28 04:05 | NUR ---
Juan godinez in ED - 09/28/20 at 1921 by [email or web address] LEVOPHED DRIP INCREASED PER PROTOCOL TO 0.5MCG/KG/MIN
[2020-09-28 04:07] VITALS: BP_SYST 117
[2020-09-28] MEDS: ALBUTEROL MDI INHALATION 8 GM INH INH SCH ×5 (05:00→19:00)
--- NOTE | 2020-09-28 05:31 | NUR ---
RT bedside for vent maintenance and pt eval and ETT care / suctioning, well tolerated
[2020-09-28 05:44] VITALS: BP_SYST 130
--- NOTE | 2020-09-28 05:44 | NUR ---
AM Portable CXR bedside well tolerated
--- NOTE | 2020-09-28 06:05 | NUR ---
No insulin coverage given based on sliding scale for the accu chk value at 133
--- NOTE | 2020-09-28 06:10 | NUR ---
1200 ml of franci yellow urine output via FC
[2020-09-28 06:36] LABS: BASOPHILS # (AUTO) 0.1 K/uL (0.0-0.2); BASOPHILS % (AUTO) 0.4 % (0.0-2.0); EOSINOPHILS % (AUTO) 0.1 % (0.0-4.0); HEMATOCRIT 30.9 % (36-54); HEMOGLOBIN 10.4 g/dL (14.0-18.0); LYMPHOCYTES # (AUTO) 0.8 K/uL (1.0-5.5); LYMPHOCYTES % (AUTO) 5.9 % (20.5-51.5); MEAN CORPUSCULAR HEMOGLOBIN 33 pg (27-31); MEAN CORPUSCULAR HGB CONC 34 % (32-36); MEAN CORPUSCULAR VOLUME 96 fL (79.0-98.0); MONOCYTES # (AUTO) 0.1 K/uL (0.0-1.0); MONOCYTES % (AUTO) 0.9 % (1.7-9.3); NEUTROPHILS # (AUTO) 13.1 K/uL (1.8-7.7); NEUTROPHILS % (AUTO) 92.7 % (40.0-70.0); PLATELET COUNT (AUTO) 133 K/uL (130-430); RED BLOOD CELL COUNT(AUTO) 3.21 MIL/uL (4.2-6.2); RED CELL DISTRIBUTION WIDTH 14.4 % (9.0-15.0)
[2020-09-28 07:00] LABS: ALBUMIN 1.1 g/dL (3.4-4.8); CREATININE 3.08 mg/dL (0.55-1.30); PHOSPHORUS 2.8 mg/dL (2.7-4.5); POTASSIUM 4.4 mmol/L (3.5-5.1); TOTAL BILIRUBIN 0.6 mg/dL (0.0-1.0)
[2020-09-28 07:09] LABS: CALCIUM 6.5 mg/dL (8.4-11.0)
--- NOTE | 2020-09-28 07:15 | NUR ---
REPORT RECEIVED FROM DANIE PHILLIPS FOR CONTINUING CARE
[2020-09-28 07:32] VITALS: BP_SYST 117
[2020-09-28 07:44] LABS: C-REACTIVE PROTEIN QUANT 56.8 mg/dL (0-0.5)
[2020-09-28 08:05] LABS: WHITE BLOOD COUNT (AUTO) 14.2 K/uL (4.8-10.8)
[2020-09-28] MEDS ORDERED: NOREPINEPHRINE 4 MG/4 ML VIAL IV ONE ×9 (09:01→22:21)
[2020-09-28] MEDS ORDERED: ETOMIDATE 20 MG/ 10 ML VIAL (AMIDATE) IVP ONE (09:11)
[2020-09-28] MEDS ORDERED: SUCCINYLCHOLINE CHLORIDE 20 MG/ML(QUELICIN) IVP ONE (09:11)
[2020-09-28] MEDS: 0.45% NACL 1,000 ML IV SCH ×2 (09:28→23:13)
[2020-09-28] MEDS: DEXAMETHASONE SOD PHOSPHATE 10 MG/ML VIAL IVP SCH (09:29)
[2020-09-28 09:46] LABS: ERYTHROCYTE SEDIMENTATION RATE 103 MM/HR (0-15)
--- NOTE | 2020-09-28 10:30 | NUR ---
PT REPOSITIONED FOR COMFORT, SKIN CLEAN, DRY INTACT
--- NOTE | 2020-09-28 10:50 | NUR ---
LEVOPHED DRIP INCREASED PER PROTOCOL TO 0.2 Addendum: 09/28/20 at 1918 by [email or web address] LEVOPHED DRIP INCREASED PER PROTOCOL TO 0.2MCG/KG/MIN
[2020-09-28 11:17] VITALS: BP_SYST 74
--- NOTE | 2020-09-28 11:40 | NUR ---
LEVOPHED DRIP INCREASED PER PROTOCOL TO 0.3MCG/KG/MIN
--- NOTE | 2020-09-28 12:30 | NUR ---
SW DR. VELASCO REGARDING PT'S DECREASING BP AND LACK OF URINE OUTPUT VIA FORREST CATH. ORDERS RECEIVED
--- NOTE | 2020-09-28 13:00 | NUR ---
LEVOPHED DRIP INCREASED PER PROTOCOL TO 0.4MCG/KG/MIN
--- NOTE | 2020-09-28 13:20 | NUR ---
SW FAMILY REGARGING TALKING TO DR. VELASCO, PAGE PUT OUT TO
[2020-09-28 15:10] VITALS: BP_SYST 84
--- NOTE | 2020-09-28 16:05 | NUR ---
LEVOPHED DRIP INCREASED PER PROTOCOL TO 0.5MCG/KG/MIN
[2020-09-28] MEDS: cefTRIAXone 1 GM IVPB PREMIX 50 ML IV SCH (16:29)
--- NOTE | 2020-09-28 17:50 | NUR ---
LEVOPHED DRIP INCREASED PER PROTOCOL TO 0.6MCG/KG/MIN
[2020-09-28] MEDS ORDERED: ALBUMIN HUMAN 25% 200 ML IV ONE (18:00)
[2020-09-28] MEDS ORDERED: ALBUMIN HUMAN 25% 100 ML IV ONE ×2 (18:24→18:25)
--- NOTE | 2020-09-28 18:30 | NUR ---
PT STARTED ON ALBUMIN PER MD ORDER
[2020-09-28] MEDS ORDERED: MIDAZOLAM HCL IN 0.9 % NACL/PF 50 ML IV ONE (18:38)
[2020-09-28] MEDS ORDERED: INSULIN REGULAR, HUMAN 10 UNITS/0.1 ML INJ ONE (18:58)
[2020-09-28] MEDS: INSULIN REGULAR, HUMAN 100 UNITS/ML, 10 ML VIAL (humuLIN R) SUBCUT PRN (19:01)
--- NOTE | 2020-09-28 19:30 | NUR ---
REPORT GIVEN TO DANIE BOONE FOR CONTIUING CARE
--- NOTE | 2020-09-28 19:31 | NUR ---
report recevied from DANIE Sawyer for continuation of care.
--- NOTE | 2020-09-28 19:34 | NUR ---
LEVOPHED DRIP INCREASED PER PROTOCOL TO 0.63MCG/KG/MIN.
--- NOTE | 2020-09-28 19:34 | NUR ---
Juan godinez in [facility] - 09/29/20 at 0109 by ANA PAULA LEVOPHED DRIP INCREASED PER PROTOCOL TO 0.603MCG/KG/MIN.
--- NOTE | 2020-09-28 20:19 | NUR ---
LEVOPHED DRIP INCREASED PER PROTOCOL TO 0.66MCG/KG/MIN.
[2020-09-28] MEDS ORDERED: VANCOMYCIN HCL 1,000 MG in NS 250 ML IV ONE (20:30)
[2020-09-28] MEDS: NOREPINEPHRINE BITARTRATE 4 MG in NS 246 ML IV PRN ×2 (20:55→22:32)
--- NOTE | 2020-09-28 21:19 | NUR ---
LEVOPHED DRIP INCREASED PER PROTOCOL TO 0.69MCG/KG/MIN.
--- NOTE | 2020-09-28 22:19 | NUR ---
LEVOPHED DRIP INCREASED PER PROTOCOL TO 0.72MCG/KG/MIN.
--- NOTE | 2020-09-28 23:19 | NUR ---
LEVOPHED DRIP INCREASED PER PROTOCOL TO 0.75MCG/KG/MIN.
--- NOTE | 2020-09-29 00:04 | NUR ---
LEVOPHED DRIP INCREASED PER PROTOCOL TO 0.78MCG/KG/MIN.
[2020-09-29] MEDS ORDERED: INSULIN REGULAR, HUMAN 10 UNITS/0.1 ML INJ ONE (00:14)
--- NOTE | 2020-09-29 00:19 | NUR ---
LEVOPHED DRIP INCREASED PER PROTOCOL TO 0.81MCG/KG/MIN.
[2020-09-29] MEDS: INSULIN REGULAR, HUMAN 100 UNITS/ML, 10 ML VIAL (humuLIN R) SUBCUT PRN ×2 (00:23→06:17)
--- NOTE | 2020-09-29 00:23 | NUR ---
angélica - BS 237. patient medicated with 4 units of Humulin Insulin SUBQ per MD protocol of sliding scale.
--- NOTE | 2020-09-29 00:52 | NUR ---
respiratory therapist at bedside suctioning patient.
[2020-09-29] MEDS ORDERED: NOREPINEPHRINE 4 MG/4 ML VIAL IV ONE ×10 (01:14→16:46)
--- NOTE | 2020-09-29 01:37 | NUR ---
LEVOPHED DRIP INCREASED PER PROTOCOL TO 0.84MCG/KG/MIN.
--- NOTE | 2020-09-29 01:57 | NUR ---
LEVOPHED DRIP INCREASED PER PROTOCOL TO 0.87MCG/KG/MIN.
--- NOTE | 2020-09-29 02:27 | NUR ---
LEVOPHED DRIP INCREASED PER PROTOCOL TO 0.90MCG/KG/MIN.
--- NOTE | 2020-09-29 02:32 | NUR ---
LEVOPHED DRIP INCREASED PER PROTOCOL TO 0.93MCG/KG/MIN.
--- NOTE | 2020-09-29 02:42 | NUR ---
LEVOPHED DRIP INCREASED PER PROTOCOL TO 0.96MCG/KG/MIN.
--- NOTE | 2020-09-29 02:47 | NUR ---
LEVOPHED DRIP INCREASED PER PROTOCOL TO 0.99MCG/KG/MIN.
--- NOTE | 2020-09-29 02:50 | NUR ---
O2 sat at 76%. respiratory informed and on their way. pt vented at 100% FIO2
--- NOTE | 2020-09-29 03:09 | NUR ---
Juan godinez in ED - 09/29/20 at 0309 by ANA PAULA LEVOPHED DRIP INCREASED PER PROTOCOL TO 0.75MCG/KG/MIN.
--- NOTE | 2020-09-29 03:10 | NUR ---
LEVOPHED DRIP INCREASED PER PROTOCOL TO 1.0MCG/KG/MIN.
--- NOTE | 2020-09-29 03:47 | NUR ---
RESPIRATORY AT BEDSIDE SUCTIONING PT.
[2020-09-29] MEDS: ALBUTEROL MDI INHALATION 8 GM INH INH SCH ×6 (04:04→19:00)
[2020-09-29 04:28] VITALS: BP_SYST 91
--- NOTE | 2020-09-29 05:00 | NUR ---
LAB AT BEDSIDE DRAWING MORNING LABS.
--- NOTE | 2020-09-29 05:12 | NUR ---
SPOKE WITH DR. VELASCO REGARDING O2 SAT WHICH IS CURRENTLY 62% ON VENTILATOR AT 100%. PER KRISTA, CONTACT CODE MACHINE OPERATOR.
--- NOTE | 2020-09-29 05:15 | NUR ---
SPOKE WITH DR. IRVIN, RENTAL REPRESENTATIVE REGARDING O2 SAT OF 63%. NO CHANGE IN ORDERS.
[2020-09-29 05:44] VITALS: BP_SYST 91
[2020-09-29 05:57] LABS: BASOPHILS # (AUTO) 0.1 K/uL (0.0-0.2); BASOPHILS % (AUTO) 0.3 % (0.0-2.0); HEMATOCRIT 25.7 % (36-54); HEMOGLOBIN 8.1 g/dL (14.0-18.0); LYMPHOCYTES # (AUTO) 1.5 K/uL (1.0-5.5); LYMPHOCYTES % (AUTO) 4.6 % (20.5-51.5); MEAN CORPUSCULAR HEMOGLOBIN 32 pg (27-31); MEAN CORPUSCULAR HGB CONC 32 % (32-36); MEAN CORPUSCULAR VOLUME 102 fL (79.0-98.0); MONOCYTES # (AUTO) 0.2 K/uL (0.0-1.0); MONOCYTES % (AUTO) 0.6 % (1.7-9.3); NEUTROPHILS # (AUTO) 31.6 K/uL (1.8-7.7); NEUTROPHILS % (AUTO) 94.5 % (40.0-70.0); PLATELET COUNT (AUTO) 165 K/uL (130-430); RED BLOOD CELL COUNT(AUTO) 2.53 MIL/uL (4.2-6.2); RED CELL DISTRIBUTION WIDTH 15.9 % (9.0-15.0)
--- NOTE | 2020-09-29 06:09 | NUR ---
RECEIVED ORDERS FROM DR. VELASCO FOR NEOSYNEPHINERINE 100MG TO BE TITRATED TO MAINTAIN BP OF 90/60 WITH A MAP OF 65.
--- NOTE | 2020-09-29 06:11 | NUR ---
angélica - BS 184. patient medicated with 2 units of Humulin Insulin SUBQ per MD protocol of sliding scale.
[2020-09-29] MEDS ORDERED: PHENYLEPHRINE HCL 100 MG in NS 240 ML IV PRN (06:15)
[2020-09-29] MEDS: 0.45% NACL 1,000 ML IV SCH ×2 (06:45→19:00)
--- NOTE | 2020-09-29 06:55 | NUR ---
CRITICAL LAB REPORTING - POTASSIUM 6. DR. VELASCO PAGED.
[2020-09-29 07:09] LABS: CALCIUM 5.4 mg/dL (8.4-11.0)
--- NOTE | 2020-09-29 07:10 | NUR ---
ATTEMPTED TO CALL PHARMACY MULTIPLE TIMES SINCE 0630AM. NO ANSWER. PATIENT REQUIRING LIFE-SUSTAINING MEDICATIONS.
[2020-09-29 07:16] VITALS: BP_SYST 86
[2020-09-29] MEDS ORDERED: PHENYLEPHRINE HCL 10 MG/ML VIAL (NEOSYNEPHRINE) ONE (07:17)
--- NOTE | 2020-09-29 07:22 | NUR ---
REPORT GIVEN TO DANIE HERRERA FOR CONTINUATION OF CARE.
--- NOTE | 2020-09-29 07:22 | NUR ---
REPORT RECEIVED FROM DANIE BOONE FOR CONTINUING CARE
[2020-09-29 07:29] LABS: C-REACTIVE PROTEIN QUANT 32.8 mg/dL (0-0.5)
--- NOTE | 2020-09-29 07:30 | NUR ---
PT INITIATED ON PHENYLEPHRINE PER PROTOCOL STARTING @ 5.75MLS/HR
[2020-09-29] MEDS ORDERED: MORPHINE I.V. DRIP 100 ML IV ONE (07:36)
[2020-09-29] MEDS ORDERED: MIDAZOLAM HCL IN 0.9 % NACL/PF 50 ML IV ONE (07:37)
[2020-09-29 07:46] LABS: WHITE BLOOD COUNT (AUTO) 33.5 K/uL (4.8-10.8)
--- NOTE | 2020-09-29 07:56 | NUR ---
SPOKE WITH DR. VELASCO, ORDERS RECEIVED FOR KAYEXALATE 30MG NG TUBE ONCE FOR CRITICAL POTASSIUM, AND 1GM CALCIUM GLUCONATE IVP ONCE FOR CRITICAL CALCIUM.
[2020-09-29] MEDS ORDERED: CALCIUM GLUCONATE 1 GM/10 ML VIAL IVP ONE (08:00)
[2020-09-29] MEDS ORDERED: SODIUM POLYSTYRENE SULFONATE 15 GM/60 ML UDBTL NG ONE (08:00)
[2020-09-29 08:15] LABS: ERYTHROCYTE SEDIMENTATION RATE 36 MM/HR (0-15)
[2020-09-29] MEDS ORDERED: SODIUM POLYSTYRENE SULFONATE 15 GM/60 ML UDBTL GT ONE (08:15)
[2020-09-29] MEDS ORDERED: SODIUM POLYSTYRENE SULFONATE 15 GM/60 ML UDBTL ONE ×2 (08:24→09:26)
[2020-09-29] MEDS ORDERED: CALCIUM GLUCONATE 1 GM/10 ML VIAL ONE (08:25)
--- NOTE | 2020-09-29 09:00 | NUR ---
SW DAUGHTER NICOLE FOR STATUS UPDATE .
[2020-09-29] MEDS: DEXAMETHASONE SOD PHOSPHATE 10 MG/ML VIAL IVP SCH (09:23)
--- NOTE | 2020-09-29 10:00 | NUR ---
PT PHENYLEPHRINE TITRATED UP TO 6.1MLS/HR PER PROTOCOL
[2020-09-29] MEDS ORDERED: NOREPINEPHRINE BITARTRATE 8 MG in D5W 242 ML IV PRN (10:45)
[2020-09-29 11:04] VITALS: BP_SYST 87
--- NOTE | 2020-09-29 11:30 | NUR ---
ORDER RECEIVED FOR DOUBLE CONCENTRATION OF LEVOPHED 8MG/250ML NS. NEW RATE IS 0.5MCG/KG/MIN
--- NOTE | 2020-09-29 12:40 | NUR ---
BP UP TO 221/94, PT PHENYLEPHRINE TITRATED DOWN TO 5.75 MLS/HR PER PROTOCOL AND NOREPINEPHRINE DECREASED TO 0.47 PER PROTOCOL
--- NOTE | 2020-09-29 14:00 | NUR ---
DIALYSIS NURSE CAME, HOWEVER DR. VIEIRA FOR [facility] HAS NOT ARRIVED YET TO INITATE HEMODIALYSIS
--- NOTE | 2020-09-29 15:30 | NUR ---
CALL RECEIVED THAT MD IS EN ROUTE FOR CATH PLACEMENT FOR DIALYSIS
--- NOTE | 2020-09-29 16:00 | NUR ---
KORI VIDEOCALL PROVIDED TO FAMILY AT THE BEDSIDE WITH PT. SISTERS AND DAUGHTER ABLE TO SEE AND SPEAK TO PT
[2020-09-29] MEDS ORDERED: ATROPINE SULFATE 1 MG/10 ML SYRINGE IVP ONE ×2 (16:36→17:00)
--- NOTE | 2020-09-29 16:38 | NUR ---
PT HAD A SUDDEN DECREASE IN HR- DR. LAMBERT AT THE BEDSIDE. ATROPINE X1 GIVEN 1638, EPIX1 GIVEN 1639, 1641 SODIUM BICARB X1 GIVEN, 1642 V/S STABLE 129/86, 94, 82% ON VENT 100%.
[2020-09-29] MEDS ORDERED: HEPARIN SODIUM,PORCINE 5,000 UNITS/ML VIAL ONE (16:54)
[2020-09-29] MEDS ORDERED: SODIUM BICARBONATE 8.4% JECT 50 MEQ/50 ML SYRINGE IVP ONE (17:00)
[2020-09-29] MEDS ORDERED: EPINEPHrine JECT 0.1 MG/ML SYR IVP ONE (17:00)
--- NOTE | 2020-09-29 17:29 | NUR ---
PT BEGAN TO HAVE A RAPID DECREASE IN HR, DR. LAMBERT AT THE BEDSIDE. CODE BLUE INITIATED. 172: HR 32 WITH BP 92/59. EPI X1 GIVEN IVP, 173 CALCIUM CHLORIDE X1 GIVEN IVP, 173 AMIODARONE X1 GIVEN IVP, 173 EPI X1 GIVEN IVP, 1738 EPI X1 GIVEN IVP, LOSS OF PULSE AT 1738- CHEST COMPRESSIONS STARTED, PT ATTACHED TO CRASH CART. 173 MAGNESIUM X1 IVP GIVEN ALL PER MD ORDERS BEDSIDE. PT CONTINUED TO BE IN ASYSTOLE. TIME OF DECLARED BY @ 1074
--- NOTE | 2020-09-29 17:46 | NUR ---
spoke w/ Dr. Montano and informed that pt .
--- NOTE | 2020-09-29 18:23 | NUR ---
spoke w/ Chantale Rodriguez, pt's sister. Infromed that Mr. Gracia . Unable to obtain mortuary information at the moment
--- NOTE | 2020-09-29 18:33 | NUR ---
Spoke w/ [facility] #[id number].
--- NOTE | 2020-09-29 18:34 | NUR ---
Spoke w/ [facility] corner's. Pt is not a corner's case
[2020-09-29] MEDS: cefTRIAXone 1 GM IVPB PREMIX 50 ML IV SCH (19:00)
--- NOTE | 2020-09-29 19:16 | NUR ---
Postmortem care by JUNI Hector and DANIE Kathleen.
--- NOTE | 2020-09-29 20:36 | NUR ---
Patient's [place] [facility].
--- NOTE | 2020-10-03 13:03 | NUR ---
Mortuary Phoned patient's sister, Chantale [phone]. She stated the mortuary of choice was [facility], . I asked if she had signed the release of remains. She was not sure. She is going to call the mortuary. Will follow up. Addendum: 10/03/20 at 1556 by Gali Lerner LCSW Chantale called and stated the paperwork has been signed. Phoned [place] and requested a call back. Need a release of remains faxed and an ETA for nut picker Addendum: 10/03/20 at 1700 by Gali Lerner LCSW Called [facility] again. Left another message. Will follow up tomorrow.
== END 2020-09-29 17:39 | disposition expired | DRG 871 ==
LOC: SED 08:03 → STU 12:05 → SIC 19:40
PROVIDERS: ADMIT Preventive Medicine Preventive Medicine/Occupational Environmental Medicine; ATTEND Preventive Medicine Preventive Medicine/Occupational Environmental Medicine
PROC: B54BZZA Ultrasonography of Right Lower Extremity Veins, Guidance (ICD-10-PCS; 2020-09-23)
PROC: 05HY33Z Insertion of Infusion Device into Upper Vein, Percutaneous Approach (ICD-10-PCS; 2020-09-23)
PROC: 0BH17EZ Insertion of Endotracheal Airway into Trachea, Via Natural or Artificial Opening (ICD-10-PCS; principal; 2020-09-26)
PROC: 5A1945Z Respiratory Ventilation, 24-96 Consecutive Hours (ICD-10-PCS; 2020-09-26)
PROC: 5A12012 Performance of Cardiac Output, Single, Manual (ICD-10-PCS; 2020-09-29)
DX: A41.89 Other specified sepsis (principal); U07.1 COVID-19; J12.89 Other viral pneumonia; J80 Acute respiratory distress syndrome; J96.21 Acute and chronic respiratory failure with hypoxia; R65.21 Severe sepsis with septic shock; I21.4 Non-ST elevation (NSTEMI) myocardial infarction; N17.0 Acute kidney failure with tubular necrosis; E43 Unspecified severe protein-calorie malnutrition; D84.9 Immunodeficiency, unspecified; E87.1 Hypo-osmolality and hyponatremia; E87.2 Acidosis; N39.0 Urinary tract infection, site not specified; Z99.11 Dependence on respirator [ventilator] status; E87.0 Hyperosmolality and hypernatremia; E11.22 Type 2 diabetes mellitus with diabetic chronic kidney disease; E11.65 Type 2 diabetes mellitus with hyperglycemia; E78.5 Hyperlipidemia, unspecified; E87.6 Hypokalemia; E88.09 Other disorders of plasma-protein metabolism, not elsewhere classified; G40.909 Epilepsy, unspecified, not intractable, without status epilepticus; R74.01 Elevation of levels of liver transaminase levels; K21.9 Gastro-esophageal reflux disease without esophagitis; N18.9 Chronic kidney disease, unspecified; R13.10 Dysphagia, unspecified; Z20.828 Contact with and (suspected) exposure to other viral communicable diseases; D64.9 Anemia, unspecified; D69.6 Thrombocytopenia, unspecified; E83.51 Hypocalcemia; I95.9 Hypotension, unspecified; E83.39 Other disorders of phosphorus metabolism; I13.10 Hypertensive heart and chronic kidney disease without heart failure, with stage 1 through stage 4 chronic kidney disease, or unspecified chronic kidney disease; Z86.73 Personal history of transient ischemic attack (TIA), and cerebral infarction without residual deficits; Z93.1 Gastrostomy status; Z88.8 Allergy status to other drugs, medicaments and biological substances
CPT/HCPCS: 36415; 36600; 71045; 76770; 80048; 80053; 81000-TC; 82550-TC; 82553-TC; 82728; 82803-TC; 82962; 83605; 83615-TC; 83735-TC; 83880; 84100-TC; 84484; 85007; 85025; 85027; 85379; 85384-TC; 85610-TC; 85651-TC; 85730-TC; 86140; 86886; 86900; 86901; 87040-TC; 87070-TC; 87081; 87086; 87186-TC; 87205-TC; 92610-GN; 93005; 93306; 94002; 94003; 94640; 94664; 94760; 99291; C1751; G0378; J0330; J0456; J0461; J0610; J0696; J1100; J1644; J1815; J2060; J2270; J2370; J3370; J3480; J3490; J7030; J7040; J7050; J7060; P9046; Q0144